=== PATIENT | female | born 1985 | race Caucasian/White ===

== ENCOUNTER 2017-07-09 21:44 | Outpatient (CLI) | payer BC, MEDICAID ==
[~2017-07-09] VITALS: Ht 160 cm; Wt 90.5 kg
[~2017-07-09 21:44] MED LIST: CETIRIZINE; SERTRALINE; [UNRECOGNIZED DRUG - CODE]
[2017-07-09 22:00] VITALS: BP 128/75; PULSE 76; TEMP 98.1
[2017-07-09] MEDS ORDERED: PRENATAL MVI PO (22:03)
[2017-07-09] MEDS ORDERED: CELEXA 20MG20 MG/TAB PO (22:04)
[2017-07-09 22:05] VITALS: BP 128/75; PULSE 76; TEMP 98.1
== END 2017-07-09 23:20 | disposition home or self-care (01) ==
LOC: LDRO 21:44
DX: O62.2 Other uterine inertia (principal); Z3A.34 34 weeks gestation of pregnancy

== ENCOUNTER 2017-08-12 20:01 | Inpatient (IN) | payer BC, MEDICAID ==
[2017-08-12] VITALS (14 sets, daily range): BP systolic 133–158; BP diastolic 74–92; PULSE 64–77; TEMP 98.1–98.6
[~2017-08-12] VITALS: Ht 160 cm; Wt 92.3 kg
[~2017-08-12 20:01] MED LIST changes: +CELEXA 20MG20 MG/TAB PO; +PRENATAL MVI PO
[2017-08-12 21:32] LABS: BASO % 0.4 % (0.0-2.0); EOS % 0.4 % (0-4.0); GRAN # 7.4 (1.4-6.5); GRAN % 74.7 % (42.2-75.2); HEMATOCRIT 33.4 % (37.0-47.0); HEMOGLOBIN 11.2 g/dl (12.5-16.0); LYMPH # 1.8 (1.2-3.4); LYMPH % 17.8 % (20.0-51.0); MEAN CELL VOLUME 83 fl (80.0-100.0); MEAN CORPUSCULAR HEMOGLOBIN 28 pg (27.0-31.0); MEAN CORPUSCULAR HGB CONC 34 g/dl (33.0-37.0); MEAN PLATELET VOLUME 12.2 fl (7.4-10.4); MONO # 0.6 (0.1-0.6); MONO % 6.1 % (1.7-9.3); PLATELET COUNT 163 K/mm3 (130-400); RED BLOOD COUNT 4.01 M/mm3 (4.10-5.30); WHITE BLOOD COUNT 9.9 K/mm3 (4.8-10.8)
[2017-08-13] VITALS (94 sets, daily range): BP systolic 103–154; BP diastolic 55–107; PULSE 61–96; TEMP 97.7–99.8
[2017-08-14 00:26] VITALS: BP 116/76; PULSE 92; TEMP 97.6
[2017-08-14 02:45] VITALS: BP 115/64; PULSE 88; TEMP 98.2
[2017-08-14 07:27] VITALS: BP 108/73; PULSE 91; TEMP 98
[2017-08-14 08:44] LABS: BASO % 0.4 % (0.0-2.0); EOS % 0.3 % (0-4.0); GRAN # 8.5 (1.4-6.5); GRAN % 84.3 % (42.2-75.2); LYMPH % 10.3 % (20.0-51.0); MEAN CELL VOLUME 87 fl (80.0-100.0); MEAN CORPUSCULAR HGB CONC 32 g/dl (33.0-37.0); MEAN PLATELET VOLUME 11.3 fl (7.4-10.4); MONO # 0.4 (0.1-0.6); PLATELET COUNT 118 K/mm3 (130-400); RED BLOOD COUNT 3.03 M/mm3 (4.10-5.30); REDCELL DISTRIBUTION WIDTH-CV 14.6 % (11.5-14.5); WHITE BLOOD COUNT 10.1 K/mm3 (4.8-10.8)
[2017-08-14 08:59] LABS: HEMATOCRIT 26.4 % (37.0-47.0); HEMOGLOBIN 8.4 g/dl (12.5-16.0); MEAN CORPUSCULAR HEMOGLOBIN 28 pg (27.0-31.0)
[2017-08-14 12:30] VITALS: BP 120/72; PULSE 93; TEMP 97.9
[2017-08-14 16:27] VITALS: BP 120/70; PULSE 89; TEMP 98.2
[2017-08-14 19:22] VITALS: BP 132/83; PULSE 93; TEMP 97.8
[2017-08-15] VITALS: BP 133/70; PULSE 100; TEMP 97.7
[2017-08-15 04:54] VITALS: BP 119/29; PULSE 82; TEMP 98
[2017-08-15] MEDS ORDERED: IBU600 MG PO (09:22)
[2017-08-15] MEDS ORDERED: PERCOCET 325 MG1 TA2 PO (09:22)
[2017-08-15] MEDS ORDERED: FERROUS SU325 MG/TAB PO (09:22)
[2017-08-15 09:27] VITALS: BP 134/84; PULSE 108
== END 2017-08-15 13:54 | disposition home or self-care (01) | DRG 765 ==
LOC: LDRO 20:01 → LDR 20:05 → LDRO 20:35 → LDR 20:43 → OB 20:43
PROVIDERS: Obstetrics & Gynecology
PROC: 10D00Z1 Extraction of Products of Conception, Low, Open Approach (ICD-10-PCS; principal; 2017-08-13)
DX: O99.824 Streptococcus B carrier state complicating childbirth (principal); D62 Acute posthemorrhagic anemia; O99.02 Anemia complicating childbirth; O76 Abnormality in fetal heart rate and rhythm complicating labor and delivery; O65.3 Obstructed labor due to pelvic outlet and mid-cavity contraction; O75.89 Other specified complications of labor and delivery; O62.1 Secondary uterine inertia; Z3A.39 39 weeks gestation of pregnancy; Z37.0 Single live birth
CPT/HCPCS: J0690; J2210; J2270; J2400; J2405; J2540; J2590; J2704; J2795; J7120

== ENCOUNTER 2017-08-29 11:00 | Outpatient (RCR) | payer BC, MEDICAID ==
[2017-08-24 14:54] VITALS: BP 136/84; PULSE 83; TEMP 97.5
[2017-08-26 11:20] VITALS: BP 155/78; PULSE 79; TEMP 98.2
[~2017-08-29] VITALS: Ht 160 cm; Wt 89.5 kg
[2017-08-29 11:00] VITALS: BP 135/89; PULSE 70; TEMP 98.1
[~2017-08-29 11:00] MED LIST changes: +FERROUS SU325 MG/TAB PO; +IBU600 MG PO; +PERCOCET 325 MG1 TA2 PO
== END 2017-08-29 15:58 | disposition home or self-care (01) ==
LOC: EUO 11:00
DX: D64.9 Anemia, unspecified (principal)
CPT/HCPCS: J2916; J7050

== ENCOUNTER → 2022-02-11 | Outpatient (CLI) | payer BC | LOC: COL.RAD 08:40 | DX: N97.1 Female infertility of tubal origin (principal) | CPT/HCPCS: Q9967 ==